=== PATIENT | male | born 1960 | race Asian ===

== ENCOUNTER 2017-08-18 09:59 | Inpatient (IN) | payer SELFPAY ==
[~2017-08-18] VITALS: Ht 172.7 cm; Wt 71.7 kg
[2017-08-18 10:06] VITALS: BP 184/86
[2017-08-18] MEDS ORDERED: Sodium Chloride 500ML 500 ML IV ONE (10:15)
[2017-08-18] MEDS ORDERED: Morphine Sulfate 4mg/ml Inj IVP ONE (10:15)
[2017-08-18 10:29] LABS: HEMATOCRIT 51.2 % (42.0-52.0); HEMOGLOBIN 16.6 G/DL (14.2-18.0); MEAN CORPUSCULAR VOLUME 96 FL (80-99); PLATELET COUNT 193 K/UL (150-450); RED BLOOD COUNT 5.36 M/UL (4.70-6.10); RED CELL DISTRIBUTION WIDTH 11.3 % (11.6-14.8); WHITE BLOOD COUNT 4.8 K/UL (4.8-10.8)
--- NOTE | 2017-08-18 10:35 | Emergency Room Report ---
History of Present Illness General Chief Complaint: Chest Pain Source: Patient Present Illness HPI 56-year-old male presents ED complaining of chest pain. Started this morning at rest. Pressure-like, 6/10, nonradiating. Denies shortness of breath. Was given nitroglycerin x2 and aspirin by EMS. States chest pain is now improved. has history of hypertension. States he is compliant with his medications. Denies drug use. No other aggravating or leading factors. Denies any other associated symptoms Allergies: Coded Allergies: No Known Allergies (Unverified , 08/18/17) Patient History Past Medical History: HTN Past Surgical History: none Pertinent Family History: none Social History: Denies: smoking, alcohol use, drug use Immunizations: UTD Reviewed Nursing Documentation: PMH: Agreed, PSxH: Agreed Nursing Documentation-PMH Past Medical History: No History, Except For Hx Hypertension: Yes - Hyperlipidemia Review of Systems All Other Systems: negative except mentioned in HPI Physical Exam Vital Signs Date Time Temp Pulse Resp B/P (MAP) Pulse Ox O2 Delivery O2 Flow Rate FiO2 08/18/17 09:57 98.4 95 18 184/86 98 Room Air Sp02 EP Interpretation: reviewed, normal General Appearance: no apparent distress, alert, GCS 15, non-toxic Head: normocephalic, atraumatic Eyes: bilateral eye normal inspection, bilateral eye PERRL ENT: hearing grossly normal, normal pharynx, no angioedema, normal voice Neck: full range of motion, supple/symm/no masses Respiratory: chest non-tender, lungs clear, normal breath sounds, speaking full sentences Cardiovascular #1: regular rate, rhythm, no edema Cardiovascular #2: 2+ carotid (R), 2+ carotid (L), 2+ radial (R), 2+ radial (L) , 2+ dorsalis pedis (R), 2+ dorsalis pedis (L) Gastrointestinal: normal bowel sounds, non tender, soft, non-distended, no guarding, no rebound Rectal: deferred Genitourinary: normal inspection, no CVA tenderness Musculoskeletal: back normal, gait/station normal, normal range of motion, non- tender Neurologic: alert, oriented x3, responsive, motor strength/tone normal, sensory intact, speech normal Psychiatric: judgement/insight normal, memory normal, mood/affect normal, no suicidal/homicidal ideation Reflexes: 3+ bicep (R), 3+ bicep (L), 3+ tricep (R), 3+ tricep (L), 3+ knee (R) , 3+ knee (L) Skin: normal color, no rash, warm/dry, well hydrated Lymphatic: no adenopathy Medical Decision Making Diagnostic Impression: Primary Impression: ACS (acute coronary syndrome) ER Course Hospital Course 56-year-old male presents ED complaining of chest pain. improved after NTG Differential diagnoses include: [place]/unstable angina, contusion, muscle strain, PTX, rib fracture Clinical course Patient placed on stretcher. on air sampling and monitoring. After initial history and physical I ordered labs, EKG, chest x-ray, morphine labs reviewed- no leukocytosis, hb/hct stable, electrolytes ok, trop negative EKG - NSR, no acute ischemic changes interpreted by me Chest x-ray- no acute process Case discussed with Dr. Torres and he agreed to accept the patient to his service for further care and support I. I feel this is a highly complex case requiring extensive working including EKG/Rhythm strip, Xray/CT/US, Blood/urine lab work, repeat exams while in ED, and administration of strong opiates/narcotics for pain control, admission to hospital or close patient follow up. Diagnosis - ACS admitted to telemetry in serious condition Labs Test 08/18/17 10:04 08/18/17 10:25 White Blood Count 4.8 K/UL (4.8-10.8) Red Blood Count 5.36 M/UL (4.70-6.10) Hemoglobin 16.6 G/DL (14.2-18.0) Hematocrit 51.2 % (42.0-52.0) Mean Corpuscular Volume 96 FL (80-99) Mean Corpuscular Hemoglobin 31.1 PG (27.0-31.0) Mean Corpuscular Hemoglobin Concent 32.5 G/DL (32.0-36.0) Red Cell Distribution Width 11.3 % (11.6-14.8) Platelet Count 193 K/UL (150-450) Mean Platelet Volume 7.1 FL (6.5-10.1) Neutrophils (%) (Auto) % (45.0-75.0) Lymphocytes (%) (Auto) % (20.0-45.0) Monocytes (%) (Auto) % (1.0-10.0) Eosinophils (%) (Auto) % (0.0-3.0) Basophils (%) (Auto) % (0.0-2.0) Differential Total Cells Counted 100 Neutrophils % (Manual) 28 % (45-75) Lymphocytes % (Manual) 56 % (20-45) Monocytes % (Manual) 12 % (1-10) Eosinophils % (Manual) 2 % (0-3) Basophils % (Manual) 2 % (0-2) Band Neutrophils 0 % (0-8) Platelet Estimate Adequate Platelet Morphology Normal Red Blood Cell Morphology Normal Sodium Level 141 MMOL/L (136-145) Potassium Level 4.0 MMOL/L (3.5-5.1) Chloride Level 103 MMOL/L (98-107) Carbon Dioxide Level 28 MMOL/L (21-32) Anion Gap 10 mmol/L (5-15) Blood Urea Nitrogen 11 mg/dL (7-18) Creatinine 1.0 MG/DL (0.55-1.30) Estimat Glomerular Filtration Rate > 60 mL/min (>60) Glucose Level 115 MG/DL (74-106) Calcium Level 9.4 MG/DL (8.5-10.1) Total Bilirubin 0.7 MG/DL (0.2-1.0) Aspartate Amino Transf (AST/SGOT) 30 U/L (15-37) Alanine Aminotransferase (ALT/SGPT) 66 U/L (12-78) Alkaline Phosphatase 62 U/L (46-116) Total Creatine Kinase 208 U/L (26-308) Creatine Kinase MB 2.4 NG/ML (0.0-3.6) Creatine Kinase MB Relative Index 1.1 Troponin I 0.000 ng/mL (0.000-0.056) Pro-B-Type Natriuretic Peptide 12 pg/mL (0-125) Total Protein 8.6 G/DL (6.4-8.2) Albumin 4.7 G/DL (3.4-5.0) Globulin 3.9 g/dL Albumin/Globulin Ratio 1.2 (1.0-2.7) Urine Opiates Screen Negative (NEGATIVE) Urine Barbiturates Screen Negative (NEGATIVE) Phencyclidine (PCP) Screen Negative (NEGATIVE) Urine Amphetamines Screen Negative (NEGATIVE) Urine Benzodiazepines Screen Negative (NEGATIVE) Urine Cocaine Screen Negative (NEGATIVE) Urine Marijuana (THC) Screen Negative (NEGATIVE) EKG Diagnostic Results Rate: normal Rhythm: NSR ST Segments: no acute changes ASA given to the pt in ED: No - given by ems Rhythm Strip Diag. Results EP Interpretation: yes Rhythm: NSR, no PVC's, no ectopy Chest X-Ray Diagnostic Results Chest X-Ray Diagnostic Results : Chest X-Ray Ordered: Yes # of Views/Limited/Complete: 1 View Indication: Chest Pain EP Interpretation: Yes Interpretation: no consolidation, no effusion, no pneumothorax, no acute cardiopulmonary disease Impression: No acute disease Electronically Signed by: Electronically signed by Jb Schmidt MD Last Vital Signs Date Time Temp Pulse Resp B/P (MAP) Pulse Ox O2 Delivery O2 Flow Rate FiO2 08/18/17 10:06 98.4 95 18 184/86 98 Room Air Status: improved Disposition: ADMITTED INPATIENT Condition: Serious Referrals: NON PHYSICIAN (PCP) JB SCHMIDT M.D. Aug 18, 2017 10:35
--- NOTE | 2017-08-18 10:58 | Diagnostic Imaging Report ---
Indication: Chest pain Technique: XRAY Chest 1v Comparison: None. Findings: The cardiomediastinal silhouette is normal. The lungs are clear. There is no evidence of pleural fluid. The bones are unremarkable. Impression: Normal chest.
[2017-08-18 11:09] LABS: ANION GAP 10 mmol/L (5-15); BLOOD UREA NITROGEN 11 mg/dL (7-18); CALCIUM 9.4 MG/DL (8.5-10.1); CARBON DIOXIDE 28 MMOL/L (21-32); CHLORIDE 103 MMOL/L (98-107); SODIUM 141 MMOL/L (136-145)
[2017-08-18 11:24] LABS: ALANINE AMINOTRANSFERASE 66 U/L (12-78); ALBUMIN 4.7 G/DL (3.4-5.0); ALBUMIN/GLOBULIN RATIO 1.2 (1.0-2.7); ALKALINE PHOSPHATASE 62 U/L (46-116); ASPARTATE AMINO TRANSFERASE 30 U/L (15-37); BILIRUBIN,TOTAL 0.7 MG/DL (0.2-1.0); CKMB 2.4 NG/ML (0.0-3.6); CREATINE KINASE 208 U/L (26-308)
[2017-08-18 11:55] VITALS: BP 121/84
[2017-08-18] MEDS ORDERED: SIMVASTATIN5 MG ORAL (13:38)
[2017-08-18] MEDS ORDERED: BENAZEPRIL HCL10 MG ORAL (13:38)
[2017-08-18] MEDS ORDERED: AMLODIPINE BES2.5 MG ORAL (13:38)
[2017-08-18 14:00] VITALS: BP 127/91
[2017-08-18] MEDS ORDERED: Nitroglycerin Subl 0.4mg tab SL PRN (14:30)
[2017-08-18 16:10] VITALS: BP 151/94
[2017-08-18] MEDS ORDERED: Flu Vaccine Quadrivalent 0.5ml IM ONE (18:15)
[2017-08-18 20:00] VITALS: BP 140/93
[2017-08-18] MEDS: Heparin 5000 units/ml inj SUBQ SCH (20:25)
[2017-08-19] VITALS: BP 128/84
--- NOTE | 2017-08-19 02:15 | History and Physical Report ---
DATE OF ADMISSION: 08/18/2017 CHIEF COMPLAINT: Chest pain. HISTORY OF PRESENT ILLNESS: The patient is a pleasant 56-year-old male. He has a history of hypertensive heart disease, developed pain in the right axilla while driving home from work. The pain was continuous for nearly an hour. He had some diaphoresis and shortness of breath and presented to the emergency room. On evaluation there, initial EKG showed sinus rhythm without any acute ST-T wave changes. His troponin was negative. He has had an echo that shows normal LV function without any wall motion abnormalities. He is now admitted for further evaluation and care. PAST MEDICAL HISTORY: As above. PAST SURGICAL HISTORY: None. CURRENT MEDICATIONS: Reconciled and reviewed. ALLERGIES: None. FAMILY HISTORY: Significant for history of heart disease. SOCIAL HISTORY: Negative for tobacco, ethanol, or drugs. REVIEW OF SYSTEMS: Negative except for chest pain. PHYSICAL EXAMINATION: VITAL SIGNS: Temperature 98, pulse 64, respirations 18, and blood pressure 151/94. GENERAL: The patient is a well-developed male, in no apparent distress. HEART: Regular rate and rhythm. LUNGS: Clear. ABDOMEN: Soft, nontender, and nondistended. EXTREMITIES: Without clubbing, cyanosis, or edema. LABORATORY DATA: White count 5, hemoglobin 16, hematocrit 51, and platelets 193,000. Troponin was negative. Chest x-ray is clear. ASSESSMENT: This is a pleasant male admitted with complaints of chest pain, suspect musculoskeletal, possibly some component of anxiety. PLAN: Repeat troponin in the morning. If negative, the patient can be discharged home. Continue outpatient blood pressure medicines. The patient received aspirin. Nadir Torres M.D. DR: TENZIN JOB#: [id number] CC:
[2017-08-19 04:00] VITALS: BP 128/84
[2017-08-19 08:00] VITALS: BP 126/92
[2017-08-19 08:16] LABS: CHOLESTEROL 214 MG/DL (< 200); HDL CHOLESTEROL 55 MG/DL (40-60); TRIGLYCERIDES 88 MG/DL (30-150)
[2017-08-19] MEDS: Heparin 5000 units/ml inj SUBQ SCH (08:48)
[2017-08-19] MEDS ORDERED: Benazepril 10mg tab ORAL SCH (09:00)
[2017-08-19] MEDS ORDERED: Aspirin EC 81mg tab ORAL SCH (09:00)
[2017-08-19] MEDS ORDERED: ASPIRIN-LOW81 MG ORAL (10:17)
[2017-08-19 12:00] VITALS: BP 127/90
--- NOTE | 2017-08-20 13:58 | Discharge Summary ---
Discharge Summary Hospital Course Date of Admission Aug 18, 2017 at 10:41 Date of Discharge Aug 19, 2017 at 15:00 Admitting Diagnosis Acute Coronary Syndrome ORTIZ Peterson is a 56 year old male who was admitted on Aug 18, 2017 at 10: 41 for Acute Coronary Syndrome Hospital Course dc summary # [id number] Discharge Medications New Medications: Aspirin (Aspirin EC) 81 Mg Tablet.dr 81 MG ORAL DAILY for 30 Days, #30 TAB Continued Medications: Amlodipine Besylate* (Amlodipine Besylate*) 2.5 Mg Tablet 2.5 MG ORAL DAILY, TAB Benazepril Hcl* (Benazepril Hcl*) 10 Mg Tablet 10 MG ORAL DAILY, TAB Simvastatin (Zocor) 5 Mg Tablet 5 MG ORAL BEDTIME, TAB Discharge Condition Upon Discharge: stable Discharge Disposition Patient was discharged to Home (01) Discharge Diagnoses: Discharge Instructions Discharge Instructions Special Instructions I have been assigned to complete a D/C Summary on this account. I was not involved in the patient management Kailey Bangura NP ([place]) Aug 20, 2017 13:58
--- NOTE | 2017-08-20 17:03 | Cardiology Report ---
APPROVED REPORT EXAM: Two-dimensional and M-mode echocardiogram with Doppler and color Doppler. INDICATION Chest Pain M-Mode DIMENSIONS IVSd1.4 (0.7-1.1cm)Left Atrium (MM)3.7 (1.6-4.0cm) LVDd4.6 (3.5-5.6cm)Aortic Root2.7 (2.0-3.7cm) PWd0.9 (0.7-1.1cm)Aortic Cusp Exc.2.0 (1.5-2.0cm) LVDs2.7 (2.5-4.0cm) PWs1.9 cm Normal left ventricular chamber size, systolic function and wall motion. Left ventricular ejection fraction estimated to be 60-65 %. Mild left ventricular hypertrophy. No evidence of pericardial effusion. All other cardiac chamber sizes are within normal limits. Normal appearing aortic, mitral, pulmonic and tricuspid valves. IVC dilated at 2.2 cm with physiological collapse. A color flow and spectral Doppler study was performed and revealed: No aortic insufficiency. No mitral regurgitation. reduced left ventricular relaxation c/w impaired relaxation diastolic dysfunction. Trace tricuspid regurgitation. Tricuspid systolic velocities suggests peak right ventricular systolic pressure of 13 mmHg. No pulmonic regurgitation present.
--- NOTE | 2017-08-21 00:45 | Discharge Summary 2 SIG ---
DATE OF ADMISSION: 08/18/2017 DATE OF DISCHARGE: 08/19/2017 REASON FOR ADMISSION: 56-year-old male with history of hyperlipidemia and hypertension, presented to emergency department complaining of the chest pain. Chest pain was described as pressure-like, nonradiating, quantified as 6/10 on a scale 1 to 10. Pain started at rest, early in the morning prior to presentation to the ED. Paramedics were given nitroglycerin x2 and aspirin with improvement in psin. In the emergency department upon evaluation, the patient was found to have elevated blood pressure -184/86. Troponin was negative. Laboratory workup was unremarkable. EKG revealed normal sinus rhythm. No acute ischemic changes. ProBNP- 12. Echocardiogram revealed preserved ejection fraction of 60% to 65%, mild left ventricular hypertrophy. No evidence of pericardial effusion. Normal wall motion. Right ventricular systolic pressure of 13. HOSPITAL COURSE: The patient was admitted to telemetry floor. Serial troponin x2 were negative. EKG revealed no acute ischemic changes. The patient was ruled out for acute UT with serial negative troponin and nonischemic EKG. Lipid panel revealed elevated total cholesterol and elevated LDL. The patient to continue statin that he was getting at home. Chest x-ray was negative. Blood pressure was controlled with VANESSA inhibitor and calcium channel tang, as optimized by primary care provider. Pain management was provided with nitroglycerin on as needed basis. DVT prophylaxis provided. Chest pain likely was musculoskeletal, possibly anxiety component as well. The patient was stable for discharge home. Due to the rapid and unexpected improvement in patient condition, the patient was discharged in one day. FINAL DIAGNOSES: 1. Chest pain, likely musculoskeletal origin. 2. Possibly anxiety. DISCHARGE MEDICATIONS: See medication reconciliation list. DISCHARGE INSTRUCTIONS: The patient discharged home. Follow up with the primary care provider. Nadir Torres M.D. I have been assigned to dictate discharge summary on this account and I was not involved in the patient's management. Kailey MontoyaMoh[facility]) N.PEmilie DR: LUKAS JOB#: [id number] CC: RAMEZ
--- NOTE | 2017-09-02 14:04 | Cardiology Report ---
APPROVED REPORT EKG Measurement Heart [id number] Normal sinus rhythm Normal ECG
== END 2017-08-19 15:00 | disposition home or self-care (01) | DRG 313 ==
LOC: EDBD 09:59 → EMR 10:10 → 2E 10:41 → EDBEDREQ 13:55
DX: R07.89 Other chest pain (principal); I11.9 Hypertensive heart disease without heart failure; E78.5 Hyperlipidemia, unspecified; F41.9 Anxiety disorder, unspecified; Z82.49 Family history of ischemic heart disease and other diseases of the circulatory system
CPT/HCPCS: 36415; 71045; 80053; 80061; 80307; 82550; 82553; 83880; 84484; 85007; 85025; 90630; 93005; 93306; 99285